=== PATIENT | female | born 1955 | race Caucasian/White ===

== ENCOUNTER 2017-09-02 13:44 | Outpatient (CLI) | payer OTHER ==
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
== END 2017-09-02 13:45 | disposition home or self-care (01) ==
LOC: MRI 13:44
PROVIDERS: ATTEND Family Medicine
DX: M51.27 Other intervertebral disc displacement, lumbosacral region (principal); M79.662 Pain in left lower leg; M79.661 Pain in right lower leg; M48.061 Spinal stenosis, lumbar region without neurogenic claudication
CPT/HCPCS: 72148

== ENCOUNTER 2018-07-13 09:11 | Outpatient (CLI) | payer OTHER ==
--- NOTE | 2018-07-13 11:26 | MMO ---
BILATERAL SCREENING MAMMOGRAM: Date: 07/13/18 HISTORY: 63-year-old female. Routine screening mammography. COMPARISON: 06/17/17, 02/10/13, and 07/26/09. TECHNIQUE: CC and MLO views of both breasts are submitted for interpretation. This patient's mammogram was reviewed with the assistance of computer-aided detection. FINDINGS: The breasts are composed of scattered fibroglandular tissue. Bilaterally, no suspicious dominant mass , architectural distortion, or suspicious calcifications. Benign-appearing calcification in the left breast. IMPRESSION: BIRADS 2: Benign Finding(s) RECOMMENDATION: Annual mammogram. POS: DONNA
== END 2018-07-13 09:12 | disposition home or self-care (01) ==
LOC: SCSMAMMO 09:11
PROVIDERS: ATTEND Family Medicine
DX: Z12.31 Encounter for screening mammogram for malignant neoplasm of breast (principal)
CPT/HCPCS: 77067